=== PATIENT | male | born 1985 | race Caucasian/White ===

== ENCOUNTER 2017-09-20 20:42 | Emergency (ER) | payer OTHER ==
[~2017-09-20 20:42] MED LIST: no medications
[2017-09-20] MEDS ORDERED: DiphenhydrAMINE HCL 50 MG/ML VIAL ONE (21:00)
[2017-09-20] MEDS ORDERED: METHYLPREDNISOLONE SOD SUCC 125MG/2ML VIAL ONE (21:00)
== END 2017-09-20 23:33 | disposition home or self-care (01) ==
LOC: EDH 20:42
DX: T78.49XA Other allergy, initial encounter (principal); X58.XXXA Exposure to other specified factors, initial encounter
CPT/HCPCS: 96372 ×2; 99284; J1200; J2930